=== PATIENT | female | born 1950 | race Caucasian/White ===

== ENCOUNTER 2017-02-13 00:25 | Inpatient (IN) | payer MEDICARE ==
[~2017-02-13] VITALS: Ht 170.2 cm; Wt 81.6 kg
[2017-02-13 01:04] VITALS: BMI 28.2
[2017-02-13] MEDS ORDERED: PROPRANOLOL HCL80 MG PO (02:21)
[2017-02-13] MEDS ORDERED: NEURONTIN 300300 MG PO (02:22)
[2017-02-13] MEDS ORDERED: CYMBALTA60 MG PO (02:23)
[2017-02-13] MEDS ORDERED: KLONOPIN1 MG PO (02:24)
[2017-02-13] MEDS ORDERED: COZAAR100 MG PO (02:24)
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
[2017-02-13 06:37] LABS: BASOPHILS 0.4 % (0-2); EOSINOPHILS 3.9 % (0-7); HEMATOCRIT 42.7 % (36.0-48.0); IMMATURE GRANULOCYTES 0.1 % (0-5); LYMPHOCYTES 29.6 % (15-50); MCH 32.6 pg (26.0-34.0); MCHC 35.1 g/dL (31.0-37.0); MCV 92.8 fL (80.0-100.0); MEAN PLATELET VOLUME 10.2 fL (7.4-10.4); MONOCYTES 8.6 % (2-11); NEUTROPHILS 57.4 % (40-80); PLATELET COUNT 227 10x3/uL (130-400); RDW 12.4 % (11.5-14.5); WBC 8.3 10x3/uL (4.8-10.8)
[2017-02-13 06:56] LABS: HEMOGLOBIN A1C 5.6 % (4.8-6.0)
[2017-02-13 07:08] LABS: ALBUMIN 3.9 g/dL (3.4-5.0); ALKALINE PHOSPHATASE 99 U/L (46-116); ALT (SGPT) 62 U/L (10-68); CALC OSMOLALITY 280 mosm/kg (275-300); CALCIUM 9.1 mg/dL (8.5-10.1); CARBON DIOXIDE 31.6 mmol/L (21.0-32.0); CHLORIDE - SERUM 102 mmol/L (98-107); CHOL - HDL RATIO 4.9 ratio (2.3-4.1); CHOLESTEROL, TOTAL 196 mg/dL (0-200); CREATININE - SERUM 0.7 mg/dL (0.6-1.3); GLUCOSE 124 mg/dL (74-106); HDL CHOLESTEROL 40 mg/dL (32-96); POTASSIUM - SERUM 3.4 mmol/L (3.5-5.1); PROTEIN - SERUM 6.7 g/dL (6.4-8.2); SODIUM 141 mmol/L (136-145); THYROID STIMULATING HORMONE 0.76 uIU/mL (0.36-3.74); TRIGLYCERIDE 478 mg/dL (30-200); UREA NITROGEN 9 mg/dL (7-18); eGFR NON AFRICAN AMERICAN 88 mL/min (90-120)
[2017-02-13 10:00] VITALS: BP 155/84
--- NOTE | 2017-02-13 11:28 | NUR ---
Patient in hallway. She abulates and is independent with toileting and hygiene. Patient is calm and pleasant in mood and smiling. She is remorseful about current circumstances. She denies suicidal ideation and made verbal contract with nurse that she will not self harm. Patient has been encouraged to express her feelings. Patient denies pain from her scratches on her arms. Continue to monitor, continue plan of care.
[2017-02-13 11:33] VITALS: BP 155/84
--- NOTE | 2017-02-13 20:27 | NUR ---
RECEIVED IN DAYROOM. SITTING IN RECLINER WITH PEER BY HER SIDE. DENIES THOUGHT OF SELF HARM. SMILING AND SOCIALIZING WITH THIS STAFF MEMBER. CALM AND COOPERATIVE WITH CARE AND ASSESSMENTS. ENCOURAGE TO EXPRESS NEEDS. CONTINUE PLAN OF CARE
[2017-02-13 23:31] VITALS: BP 172/84
[2017-02-14 07:25] LABS: RAPID PLASMA REAGIN Non Reactive (Non Reactive)
[2017-02-14] MEDS ORDERED: LEVOXYL100 MCG PO (07:32)
[2017-02-14 08:22] LABS: FOLATE (FOLIC ACID) - SERUM 15.3 ng/mL (>3.0)
--- NOTE | 2017-02-14 09:05 | NUR ---
Dr. Díaz office contacted regarding consult order.
[2017-02-14 10:14] VITALS: BP 155/86
[2017-02-14 11:16] LABS: VITAMIN D 25 HYDROXY 25.4 ng/mL (30.0-100.0)
[2017-02-14 12:11] LABS: APPEARANCE CLEAR (CLEAR); BILIRUBIN NEGATIVE (NEGATIVE); COLOR YELLOW (YELLOW); GLUCOSE NEGATIVE (NEGATIVE); KETONE NEGATIVE (NEGATIVE); LEUKOCYTE ESTERASE 1+ (NEGATIVE); NITRITE NEGATIVE (NEGATIVE); PROTEIN NEGATIVE (NEGATIVE); SPECIFIC GRAVITY 1.005 (1.005-1.020); UROBILINOGEN NORMAL (NORMAL)
[2017-02-14 12:14] LABS: BACTERIA MANY /hpf (NONE SEEN); EPITHELIAL CELLS 0-5 /hpf (0-5); MUCUS <1+ /lpf (NONE SEEN); WHITE CELLS - URINE 0-5 /hpf (0-5)
--- NOTE | 2017-02-14 12:42 | NUR ---
Patient in dayroom, pleasant and well-groomed, independent in adls. She associates with peers and trys to assist others. Patient denies suicidal ideation. Patient encouraged to express needs. She is oriented X4. Continue to monitor, continue plan of care
[2017-02-14 14:10] VITALS: Ht 170.2 cm; Wt 81.6 kg
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
[2017-02-14 19:29] VITALS: BP 161/80
--- NOTE | 2017-02-14 21:37 | NUR ---
RECEIVED IN HALLWAY OUTSIDE OF NURSES STATION. IN GOOD SPIRITS. HELPFUL WITH HER PEERS. CALM AND COOPERATIVE WITH CARE AND ASSESSMENTS. DENIES THOUGHTS OF SELF HARM. RESTING EYES CLOSED AT THIS TIME. CONTINUE PLAN OF CARE
[2017-02-15 08:30] VITALS: BP 170/89
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
[2017-02-15 20:16] VITALS: BP 149/1
--- NOTE | 2017-02-16 00:57 | NUR ---
B) Recieved sitting in the day room, alert and oriented X4, calm and cooperative, looks after the other patients, friendly and pleasant, no S.I., I) Administered perscribed medications, contracted for safety, R) Medication compliant, friendly and helpful, P ) Continue plan of care.
--- NOTE | 2017-02-16 10:00 | NUR ---
B) PATIENT IS AWAKE AND ALERT, DENIES DEPRESSION AND DENIES SUICIDAL IDEATIONS, SHE IS POLITE AND CALM, SHE IS HELPING PATIENTS SHE ENJOYS TALKING WITH THEM AND INTERACTING IN GROUPS AND DOING ACTIVITIES. I) PROVIDE PRESCRIBED MEDS AND REDIRECT TO USE COPING SKILLS. R) PATIENT IS COMPLIANT WITH MEDS AND UNIT [facility]. P) CONTINUE PLAN OF CARE.
--- NOTE | 2017-02-16 13:04 | PN ---
PATIENT:CAITIE ROBERTSON MEDICAL RECORD: [id number] LOCATION:[facility] ADMISSION DATE: 02/13/17 PROGRESS NOTE DATE OF SERVICE: 02/15/2017 SUBJECTIVE: The patient's case was discussed with staff. She has no new complaint. OBJECTIVE: The patient is in good behavioral control with limited insight about her condition. She tolerates her medicines well. She denies any intent to harm herself or others. ASSESSMENT: No change in diagnoses. PLAN: The patient will be transitioned out of the hospital soon. She is going to go back to the assisted living center. The family, the patient, and the assisted living center want this to happen and are in agreement that this is the best place for her. She is not appropriate for that setting in my view. She does not ambulate adequately. She is very unsteady on her feet. Her dementia is advanced and she has characterologic issues that resulted her becoming agitated when not given appropriate supervision. I think that this is a mistake and I have told all concern that it is. It does not rise to the level of reporting her to the authorities, but it is inappropriate and I strongly suspect it is not going to work out for very long. TRANSINT:[id number] Voice Confirmation ID: [id number] DOCUMENT ID: [id number] KELSEY MALAVE MD at 1304 CC: [id number] DICTATION DATE: 02/15/17 184 COMPOTYPE OPERATOR: 02/16/17 0318 ADM IN [facility] [address] [place] [address]
[2017-02-16] MEDS ORDERED: BACTRIM DS TABL1 TAB PO (13:22)
[2017-02-16] MEDS ORDERED: TIMOPTIC 0.5 % O5 ML EACH EYE (13:23)
[2017-02-16] MEDS ORDERED: VITAMIN D5000 UNIT PO (13:23)
[2017-02-16] MEDS ORDERED: CYMBALTA30 MG PO (13:23)
--- NOTE | 2017-02-16 16:00 | NUR ---
DID CALL MEDS TO PHARMACY, GAVE PATIENT APPOINTMENTS TO [facility] AND DR. WILLIAM. DID GO OVER MEDS WITH PATIENT. SHE IS CALM AND PLEASANT. PATIENT IS DISCHARGED TO HOME. BELONGINGS PACKED.
--- NOTE | 2017-02-16 16:17 | NUR ---
PATIENT D/C'D WITH FAMILY, OLIVE Welch DID SPEAK WITH FAMILY AND PATIENT.
--- NOTE | 2017-02-17 12:38 | PN ---
PATIENT:CAITIE ROBERTSON MEDICAL RECORD: [id number] LOCATION:[facility] ADMISSION DATE: 02/13/17 PROGRESS NOTE DATE OF SERVICE: 02/16/2017 SUBJECTIVE: The patient's case was discussed with staff. She has no new complaint. OBJECTIVE: The patient is in good behavioral control and has a euthymic mood and no thoughts of self-harm. ASSESSMENT: No change in diagnoses. PLAN: The patient will be transitioned out of the hospital today. The long-term prognosis is guarded. TRANSINT:[id number] Voice Confirmation ID: [id number] DOCUMENT ID: [id number] KELSEY MALAVE MD at 1238 CC: [id number] DICTATION DATE: 02/16/17 1321 JUNIOR PARALEGAL: 02/17/17 0132 DIS IN 02/16/17 [facility] [address] [place] [address]
== END 2017-02-16 16:18 | disposition home or self-care (01) | DRG 885 ==
LOC: D.PSYCH 00:25
PROVIDERS: Psychiatry & Neurology Psychiatry; ADMIT Psychiatry & Neurology Psychiatry
DX: F33.1 Major depressive disorder, recurrent, moderate (principal); R45.851 Suicidal ideations; N39.0 Urinary tract infection, site not specified; G43.909 Migraine, unspecified, not intractable, without status migrainosus; F41.9 Anxiety disorder, unspecified; E11.9 Type 2 diabetes mellitus without complications; I10 Essential (primary) hypertension; K57.90 Diverticulosis of intestine, part unspecified, without perforation or abscess without bleeding; E78.5 Hyperlipidemia, unspecified; E55.9 Vitamin D deficiency, unspecified